=== PATIENT | male | born 1935 | race Asian ===

== ENCOUNTER 2021-02-16 08:00 | Outpatient (CLI) | payer MEDICARE, OTHER ==
--- NOTE | 2021-02-17 08:37 | XRAY Report ---
PROCEDURE: Knee 4 View RT INDICATIONS: R KNEE PX TECHNIQUE: 4 views of the right knee(s) were acquired. One view of the left knee. COMPARISON: None. FINDINGS: Bones: Mild joint space narrowing bilaterally. Right knee prominent osteophytes at the lateral femor al condyle and superior and lateral patella. No fractures or dislocations. No suspicious bony lesion s. Soft tissues: No significant joint effusion. No suspicious soft tissue calcifications. Vascular tru cifications. IMPRESSION: Moderate right knee DJD. Reviewed by: Oli Cannon MD on 02/17/2021 8:36 AM PST Approved by: Oil Cannon MD on 02/17/2021 8:36 AM PST Station ID: [id number]
== END 2021-02-16 23:59 ==
LOC: DI.N 08:00
PROVIDERS: ATTEND Physician Assistant
DX: M17.11 Unilateral primary osteoarthritis, right knee (principal)

== ENCOUNTER 2021-04-07 13:46 | Outpatient (CLI) | payer MEDICARE, OTHER ==
[~2021-04-07 13:46] MED LIST: lidocaine 1% 20 ML MDV ONE
[2021-04-07] MEDS: lidocaine 1% 20 ML MDV SUBQ ONE (15:02)
--- NOTE | 2021-04-07 16:06 | Ultrasound Report ---
PROCEDURE: US Drain/Inj Joint/Bursa W US INDICATIONS: BAKERS CYST, RIGHT KNEE TECHNIQUE: The indications, alternatives, benefits, risks, and complications of the procedure were explained to the patient. Written informed consent was obtained and placed in the chart. The patient was placed in an appropriate position on the exam table, and a site was chosen for percutaneous access under ult rasound guidance. Local anesthetic was administered using a 1% lidocaine solution. A hypodermic or spinal needle was then used to access the symptomatic site. Intracystic location of the needle tip wa s confirmed by real time ultrasound imaging, followed by aspiration. The needle was then withdrawn, and a bandage applied to the puncture site. FINDINGS: Site aspirated: Right medial popliteal cyst Fluid description: 25 mL of clear yellow fluid. Complications: None. IMPRESSION: Successful ultrasound guided aspiration of a right medial popliteal cyst. Reviewed by: Facundo Sandoval MD on 04/07/2021 4:04 PM PST Approved by: Facundo Sandoval MD on 04/07/2021 4:04 PM PST Station ID: [id number]
== END 2021-04-07 13:47 | disposition home or self-care (01) ==
LOC: DI 13:46
PROVIDERS: ATTEND Physician Assistant
DX: M71.21 Synovial cyst of popliteal space [Baker], right knee (principal)
CPT/HCPCS: 20611

== ENCOUNTER 2023-10-02 13:27 | Outpatient (CLI) | payer MEDICARE, OTHER ==
--- NOTE | 2023-10-02 17:12 | MRI Report ---
Knee RT WO CLINICAL INFORMATION: 88 years of age, Male, R KNEE MASS. COMPARISON: None Technique: Multisequence, multiplanar MRI of the right knee was performed without intravenous contras t. FINDINGS: Somewhat limited evaluation given patient motion. Menisci: In the medial meniscus, there is mild intrasubstance degeneration in the meniscus body, with out tear. No extrusion of the medial meniscus body. In the lateral meniscus, there is horizontal long itudinal tear of the posterior horn, with severe maceration of the meniscus body, and complex tear of the anterior horn. There is a small meniscus flap extending inferiorly to the inferior gutter. Cruciate ligaments: The anterior and posterior cruciate ligaments are intact. MCL/LCL: The MCL is unremarkable. The biceps femoris tendon is unremarkable. Prior sprain of the pro ximal fibular collateral ligament.The iliotibial band is intact. Mild tendinosis of the proximal popl iteus tendon. Extensor mechanism: The quadricep tendon is unremarkable. The patella tendon is unremarkable. Patellofemoral joint: Alignment within the patellofemoral joint is normal. The patellofemoral ligame nts are intact. Large area of full-thickness chondral denudation in the superior aspect of the latera l patellar facet. Additional multifocal high-grade chondral irregularity in the median ridge, medial patellar facet and the inferior aspect of the lateral patellar facet. Multifocal marrow edema in the patella, degenerative. Mild chondral irregularity in the lateral trochlea. Cartilage and bone: In the medial compartment, there is mild chondral thinning in the weightbearing p ortion of the femoral condyle. In the lateral compartment, there is large areas of full-thickness cho ndral denudation in the weightbearing portion of the femoral condyle, extending to the anterior nonwe ightbearing portion of the femoral condyle. There is full-thickness chondral denudation in the tibial plateau. Moderate subchondral marrow edema in the lateral femoral condyle and the medial tibial plat eau, degenerative. Miscellaneous: Moderate knee effusion with synovitis. A large popliteal cyst. Subcentimeter loose bod y within the popliteal cyst.Normal muscle signal intensity and morphology. No vascular anomaly. IMPRESSION: 1.Extensive tear of the lateral meniscus with severe maceration of the meniscus body. 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 3.Moderate knee effusion with synovitis. Large popliteal cyst with subcentimeter loose body. Reviewed by: Catherine Good MD on 10/02/2023 5:11 PM PDT Approved by: Catherine Good MD on 10/02/2023 5:11 PM PDT Station ID: [id number]
== END 2023-10-02 13:28 | disposition home or self-care (01) ==
LOC: DI 13:27
PROVIDERS: ATTEND Nurse Practitioner Family
DX: S83.281A Other tear of lateral meniscus, current injury, right knee, initial encounter (principal); M94.8X6 Other specified disorders of cartilage, lower leg; M25.461 Effusion, right knee; M71.21 Synovial cyst of popliteal space [Baker], right knee; M23.41 Loose body in knee, right knee